=== PATIENT | female | born 1985 | race Caucasian/White ===

== ENCOUNTER 2016-08-10 11:34 | Emergency (ER) | payer OTHER ==
[~2016-08-10 11:34] MED LIST: AMB10 PO; MACROBID PO; NORCO1 TAB PO; XANAX2 MG PO
[2016-08-29] MEDS ORDERED: NORCO1 TA2 PO (16:59)
[2016-08-29] MEDS ORDERED: NEUR800 PO (17:00)
[2016-08-29] MEDS ORDERED: TRILEP300 PO (17:01)
[2016-08-29] MEDS ORDERED: METHOC500B PO (17:01)
[2016-08-29] MEDS ORDERED: PR25 PO (17:02)
== END 2016-08-10 16:13 | disposition home or self-care (01) ==
LOC: ER 11:34
DX: M25.571 Pain in right ankle and joints of right foot (principal); F41.9 Anxiety disorder, unspecified; F17.200 Nicotine dependence, unspecified, uncomplicated; Z88.2 Allergy status to sulfonamides; Z88.5 Allergy status to narcotic agent; Z79.899 Other long term (current) drug therapy
CPT/HCPCS: 73610-RT; 99283

== ENCOUNTER 2016-09-04 11:16 | Day surgery (SDC) | payer OTHER ==
[~2016-09-04 11:16] MED LIST changes: +METHOC500B PO; +NEUR800 PO; +NORCO1 TA2 PO; +PR25 PO; +TRILEP300 PO
== END 2016-09-04 15:30 | disposition home or self-care (01) ==
LOC: IMGHOLD 11:16 → RADHOLD 12:00 → SDC/OF 13:00
PROVIDERS: Anesthesiology
PROC: BQ3 Imaging, Non-Axial Lower Bones, Magnetic Resonance Imaging (MRI) (ICD-10-PCS; principal; 2016-09-04)
DX: M87.871 Other osteonecrosis, right ankle (principal); M87.071 Idiopathic aseptic necrosis of right ankle; M19.071 Primary osteoarthritis, right ankle and foot; G40.89 Other seizures; F17.210 Nicotine dependence, cigarettes, uncomplicated; G35 Multiple sclerosis; F41.9 Anxiety disorder, unspecified; Z90.89 Acquired absence of other organs; Z98.890 Other specified postprocedural states; Z87.442 Personal history of urinary calculi; Z91.018 Allergy to other foods; Z88.2 Allergy status to sulfonamides
CPT/HCPCS: 73723-RT; 84703; A9270-GY; A9577